=== PATIENT | female | born 1985 | race Caucasian/White ===

== ENCOUNTER 2017-10-09 13:52 | Emergency (ER) | payer OTHER ==
--- NOTE | 2017-10-09 14:10 | ED Physician Documentation ---
PD HPI SKIN - Stated complaint Stated Complaint: HIVES - Chief complaint Chief Complaint: Wound - History obtained from History obtained from: Patient - History of Present Illness Timing - onset: How many days ago (the past couple of days with rash on back of hands, arms and some on neck. Has had this often in the past but this is more pronounced.) Timing - duration: Days Timing - details: Gradual onset, Still present, Waxing and waning Location: Bodywide (mostly backs of hands and forearms but some on neck and upper chest as well.) Quality / character: Itchy, Burning. No: Vesicular, Draining Contributing factors: Recent illness (has some URI symptoms and congestion the past week). No: Exposed to medication, Exposed to soap / lotion Similar symptoms before: No diagnosis Recently seen: Not recently seen Review of Systems Constitutional: denies: Fever, Chills Nose: reports: Rhinorrhea / runny nose, Congestion Throat: reports: Sore throat Cardiac: denies: Chest pain / pressure Respiratory: reports: Cough. denies: Dyspnea, Wheezing GI: denies: Nausea, Vomiting, Diarrhea Skin: reports: Rash. denies: Abrasion (s), Laceration (s) PD PAST MEDICAL HISTORY - Past Medical History Cardiovascular: None Respiratory: None Neuro: None Endocrine/Autoimmune: None - Present Medications Home Medications: Ambulatory Orders Medication Instructions Recorded Confirmed Betamethasone Valerate 1 applic TP BID #15 cream..g. 10/09/17 Cetirizine [ZyrTEC] 10 mg PO DAILY #20 tablet 10/09/17 Dexamethasone [Decadron] 4 mg PO DAILY #5 tablet 10/09/17 Montelukast Sodium 10 mg PO DAILY #30 tablet 10/09/17 - Allergies Allergies/Adverse Reactions: Allergies Allergy/AdvReac Type Severity Reaction Status Date / Time Penicillins Allergy Unknown Verified 10/09/17 14:03 Sulfa (Sulfonamide Allergy Unknown Verified 10/09/17 14:04 Antibiotics) PD ED PE NORMAL - Vitals Vital signs reviewed: Yes - General General: Alert and oriented X 3, No acute distress, Well developed/nourished - HEENT HEENT: Pharynx benign - Neck Neck: Supple, no meningeal sign, No adenopathy - Cardiac Cardiac: RRR, No murmur - Respiratory Respiratory: Clear bilaterally - Derm Derm: Normal color, Warm and dry, Other (pebbly red rash without vesicles on backs of hands and forearms. None in plams. Some on chest/neck. No oral lesions. ) - Extremities Extremities: No tenderness to palpate, Normal ROM s pain - Neuro Neuro: Alert and oriented X 3, No motor deficit, Normal speech Results - Vitals Vitals: Oxygen O2 Source Room air Departure - Departure Disposition: 01 Home, Self Care Clinical Impression: Allergic response Qualifiers: Encounter type: initial encounter Qualified Code(s): T78.40XA - Allergy, unspecified, initial encounter Atopic dermatitis Qualifiers: Atopic dermatitis type: unspecified Qualified Code(s): L20.9 - Atopic dermatitis, unspecified Condition: Stable Record reviewed to determine appropriate education?: Yes Instructions: ED Dermatitis Atopic Eczema Prescriptions: Betamethasone Valerate 1 applic TP BID #15 cream..g. Cetirizine [ZyrTEC] 10 mg PO DAILY #20 tablet Dexamethasone [Decadron] 4 mg PO DAILY #5 tablet Montelukast Sodium 10 mg PO DAILY #30 tablet Comments: You may have a bit of a viral head cold triggering this allergy or could be the different environment that you are in. The common treatment would be some steroid medication orally and we can also use some topically in the areas of the worst rash. Also use an antihistamine long-acting cetirizine and he can add Benadryl if needed short-acting pain for itchiness. Because your immune system does react easily and you have this recurrently, you could consider taking an allergy medicine longer term such as Singulair and see if you overall have less allergy response. Follow-up with your primary care back home. Discharge Date/Time: 10/09/17 14:52
[2017-10-09] MEDS ORDERED: diphenhydrAMINE 25 MG CAPSULE PO STA (14:35)
[2017-10-09] MEDS ORDERED: DEXAMETHASONE 10 MG/ML VIAL PO STA (14:35)
[2017-10-09] MEDS ORDERED: CETIRIZINE 10 MG TABLET PO STA (14:35)
[2017-10-09 14:53] VITALS: BP 125/79
== END 2017-10-09 14:52 | disposition home or self-care (01) ==
LOC: ED 13:52
DX: T78.40XA Allergy, unspecified, initial encounter (principal); L20.9 Atopic dermatitis, unspecified
CPT/HCPCS: 99283; A9270